=== PATIENT | female | born 1935 | race Two or more races ===

== ENCOUNTER 2016-08-14 16:11 | Inpatient (IN) | payer MEDICARE, MEDICAID ==
[~2016-08-14] VITALS: Ht 154.9 cm; Wt 56.7 kg
--- NOTE | 2016-08-14 16:20 | NUR ---
PT EN[facility]UEL FROM [facility], CURRENTLY RESIDES AT [facility] FOR LEFT SIDED CHEST PAIN 1 HR IN TO DIALYSIS. PT AAOX3. VSS. WITH FC. SEEN BY MD FOR EVAL. SAFETY AND COMFORT MEASURES PROVIDED. WILL MONITOR.
[2016-08-14] MEDS ORDERED: ASPIRIN 325 MG TABLET ONE (16:26)
[2016-08-14] MEDS ORDERED: HYDROMORPHONE 1 MG/1 ML DISP.SYRIN ONE (16:27)
[2016-08-14] MEDS ORDERED: ONDANSETRON HCL/PF 4 MG/2 ML VIAL ONE (16:27)
--- NOTE | 2016-08-14 16:27 | NUR ---
STARTED IVHL L HAND 18G
--- NOTE | 2016-08-14 16:27 | NUR ---
Hakeem zambrano in [facility] - 08/14/16 at 1627 by JADON JOSE RAFAEL SANTORO 18G
[2016-08-14] MEDS ORDERED: HYDROMORPHONE INJ 2 MG/ML DISP.SYRIN IV ONE (16:30)
[2016-08-14] MEDS ORDERED: ASPIRIN 325 MG TABLET PO ONE (16:30)
[2016-08-14] MEDS ORDERED: ONDANSETRON HCL/PF 4 MG/2 ML VIAL IVP ONE (16:30)
--- NOTE | 2016-08-14 16:39 | NUR ---
PATIENT STATES THAT SHE IS ALSO ALLERGIC TO ASPIRIN, DR HOUSER MADE AWARE.
[2016-08-14 16:52] LABS: BASOPHILS % (AUTO) 0.4 % (0.0-2.0); EOSINOPHILS # (AUTO) 0.4 /CMM (0.0-0.7); EOSINOPHILS % (AUTO) 3.2 % (0.0-6.0); HEMATOCRIT 34 % (33-45); HEMOGLOBIN 11.3 g/dL (11.5-14.8); LYMPHOCYTES # (AUTO) 2.6 /CMM (0.8-4.8); LYMPHOCYTES % (AUTO) 20.8 % (20.0-44.0); MEAN CORPUSCULAR HEMOGLOBIN 32 PG (26.0-33.0); MEAN CORPUSCULAR HGB CONC 33 g/dl (31.0-36.0); MEAN CORPUSCULAR VOLUME 96 fL (82-100); MONOCYTES # (AUTO) 0.6 /CMM (0.1-1.30); MONOCYTES % (AUTO) 4.6 % (2.0-12.0); NEUTROPHILS # (AUTO) 8.8 /CMM (1.8-8.9); PLATELET COUNT (AUTO) 269 /CMM (150-450); RDW COEFFICIENT OF VARIATION 14.7 (11.5-15.0); RED BLOOD CELL COUNT(AUTO) 3.55 MIL/uL (4.0-5.2); WHITE BLOOD COUNT (AUTO) 12.5 K/uL (4.3-11.0)
[2016-08-14 17:02] LABS: CALCIUM, SERUM 9.1 mg/dL (8.5-10.1); CARBON DIOXIDE 24 mmol/L (21-32); CHLORIDE 104 mmol/L (98-107); CREATININE 2.1 mg/dL (0.6-1.3); GLUCOSE 160 mg/dL (74-106); POTASSIUM 4.4 mmol/L (3.5-5.1); SODIUM SERUM 137 mmol/L (136-145); UREA NITROGEN, BLOOD 25 mg/dL (7-18)
[2016-08-14 17:08] LABS: ALANINE AMINOTRANSFERASE 35 U/L (12-78); ALBUMIN 2.9 g/dL (3.4-5.0); ALKALINE PHOSPHATASE 140 U/L (46-116); ASPARTATE AMINOTRANSFERASE 32 U/L (15-37); BILIRUBIN,DIRECT 0.1 mg/dL (0.0-0.2); BILIRUBIN,TOTAL 0.3 mg/dL (0.2-1.0); TOTAL PROTEIN, SERUM 7.2 g/dL (6.4-8.2)
[2016-08-14 17:10] LABS: TROPONIN I < 0.017 ng/mL (0.00-0.056)
[2016-08-14 17:39] LABS: INR 0.96 (0.87-1.13); PROTHROMBIN TIME 10.3 SECS (9.5-12.7)
--- NOTE | 2016-08-14 17:42 | NUR ---
CALLED [facility]S GROUP, END FINDER FORMING DEPARTMENT, PAGED TO CALL BACK
[2016-08-14] MEDS ORDERED: METO50TA3 PO (18:02)
[2016-08-14] MEDS ORDERED: FOLI0.8T2 PO (18:02)
[2016-08-14] MEDS ORDERED: CLON0.1T PO (18:02)
[2016-08-14] MEDS ORDERED: GABA-532 PO (18:02)
[2016-08-14] MEDS ORDERED: AMLO5TAB2 PO (18:02)
[2016-08-14] MEDS ORDERED: MEGE400O PO (18:02)
[2016-08-14] MEDS ORDERED: ZOLP10TA2 PO (18:02)
[2016-08-14] MEDS ORDERED: ACET-868 PO (18:02)
[2016-08-14] MEDS ORDERED: FURO-144 PO (18:02)
[2016-08-14] MEDS ORDERED: NA P133E RC (18:02)
[2016-08-14] MEDS ORDERED: PANT40TA2 PO (18:02)
[2016-08-14] MEDS ORDERED: ZINC220T PO (18:02)
[2016-08-14] MEDS ORDERED: ONDA4TAB5 PO (18:02)
[2016-08-14] MEDS ORDERED: MAGN400O6 PO (18:02)
[2016-08-14] MEDS ORDERED: OXYB5TAB11 PO (18:02)
[2016-08-14] MEDS ORDERED: ASCO-340 PO (18:02)
[2016-08-14] MEDS ORDERED: BISA10SU8 RC (18:02)
--- NOTE | 2016-08-14 18:23 | NUR ---
REPORT GIVEN TO TAMELA MOMIN FOR TELE ROOM 322-1
[2016-08-14] MEDS ORDERED: NITROGLYCERIN 0.4 MG/TAB BOTTLE SL PRN (19:30)
[2016-08-14] MEDS ORDERED: ONDANSETRON HCL/PF 4 MG/2 ML VIAL IVP PRN (19:30)
[2016-08-14] MEDS ORDERED: HYDROMORPHONE 1 MG/1 ML DISP.SYRIN IV PRN (19:30)
[2016-08-14] MEDS ORDERED: HYDROCODONE/APAP 5/325MG 1 EACH TABLET PO PRN (19:30)
--- NOTE | 2016-08-14 19:30 | NUR ---
TILE MASON NOTES RECEIVED PT IN BED, ALERT AND ORIENTED. COSTA RICAN SPEAKING. NEW ADMIT WITH A DX OF CHEST PAIN. PT ON ROOM TOLERATING WELL. DENIES ANY CHEST PAIN OR DISCOMFORT. BODY AND SKIN ASSESSMENT DONE NOTED ON OPEN WOUND ON THE SACRAL.NOTED WITH ESTRADA CATHETER, DWELLING WELL. NURSING CARE RENDERED. BELONGINGS CHECKED DONE. ALL NEEDS ATTENDED AND ANTICIPATED. SAFETY MEASURES MAINTAINED. WILL CONT. TO MONITOR.
[2016-08-14 20:00] VITALS: BP 134/71
--- NOTE | 2016-08-14 23:00 | NUR ---
RN NOTES Called DR. Frank regarding and get an order for insulin sliding scale. Dr. Frank gave an order for mild regular insulin sliding scale and change diet to renal diabetic diet. Noted and carried out.
[2016-08-14] MEDS ORDERED: BLOOD SUGAR DIAGNOSTIC 1 EACH STRIP IN SCH (23:30)
[2016-08-14] MEDS ORDERED: DEXTROSE 50%-WATER 50 ML DISP.SYRIN IV PRN (23:30)
[2016-08-14] MEDS: BLOOD SUGAR DIAGNOSTIC 1 EACH STRIP IN SCH (23:34)
[2016-08-15] VITALS: BP_SYST 152; BP_SYST 165; BP_DIAS 73; BP_DIAS 83
[2016-08-15] MEDS ORDERED: INSULIN REGULAR, HUMAN 100 UNIT/ML 10 ML VIAL ONE (00:29)
[2016-08-15] MEDS: INSULIN REGULAR, HUMAN 100 UNIT/ML 3 ML VIAL SQ PRN ×2 (00:43→23:24)
[2016-08-15 04:00] VITALS: BP 165/83
[2016-08-15] MEDS: ACETAMINOPHEN 325 MG TABLET PO PRN (04:51)
[2016-08-15 05:31] LABS: BASOPHILS % (AUTO) 0.2 % (0.0-2.0); EOSINOPHILS # (AUTO) 0.4 /CMM (0.0-0.7); EOSINOPHILS % (AUTO) 3.9 % (0.0-6.0); HEMATOCRIT 34 % (33-45); HEMOGLOBIN 11.7 g/dL (11.5-14.8); LYMPHOCYTES # (AUTO) 2.6 /CMM (0.8-4.8); LYMPHOCYTES % (AUTO) 24.3 % (20.0-44.0); MEAN CORPUSCULAR HEMOGLOBIN 32 PG (26.0-33.0); MEAN CORPUSCULAR HGB CONC 34 g/dl (31.0-36.0); MEAN CORPUSCULAR VOLUME 94 fL (82-100); MONOCYTES # (AUTO) 0.8 /CMM (0.1-1.30); MONOCYTES % (AUTO) 7.2 % (2.0-12.0); NEUTROPHILS # (AUTO) 6.9 /CMM (1.8-8.9); NEUTROPHILS % (AUTO) 64.4 % (43.0-81.0); PLATELET COUNT (AUTO) 270 /CMM (150-450); RDW COEFFICIENT OF VARIATION 14.7 (11.5-15.0); RED BLOOD CELL COUNT(AUTO) 3.64 MIL/uL (4.0-5.2); WHITE BLOOD COUNT (AUTO) 10.7 K/uL (4.3-11.0)
[2016-08-15 05:49] LABS: CALCIUM, SERUM 8.9 mg/dL (8.5-10.1); CARBON DIOXIDE 23 mmol/L (21-32); CHLORIDE 104 mmol/L (98-107); CREATININE 2.8 mg/dL (0.6-1.3); GLUCOSE 159 mg/dL (74-106); MAGNESIUM 2.8 mg/dL (1.8-2.4); PHOSPHORUS 3.2 mg/dL (2.5-4.9); POTASSIUM 5.9 mmol/L (3.5-5.1); SODIUM SERUM 138 mmol/L (136-145); UREA NITROGEN, BLOOD 38 mg/dL (7-18)
[2016-08-15] MEDS: BLOOD SUGAR DIAGNOSTIC 1 EACH STRIP IN SCH ×4 (06:40→23:21)
[2016-08-15 06:51] VITALS: BP 138/68
--- NOTE | 2016-08-15 07:43 | NUR ---
COMMUNICATIONS DIRECTOR NOTES ENDORSED PT TO THE NEXT SHIFT WITH NO EPISODE OF CHEST PAIN.
--- NOTE | 2016-08-15 07:55 | NUR ---
MS RN RECEIVED ON BED, AWAKE, ALERT,ORIENTED X1-2,NOT IN ANY FORM OF DISTRESS, RESPIRATIONS EVEN AND UNLABORED,NO SOB NOTED. WILL MONITOR PATIENT.
--- NOTE | 2016-08-15 08:00 | NUR ---
MS MERRILL BREAKFAST SERVED,DUE MEDS HELD AT THIS TIME, PATIENT WILL HAVE DIALYSIS TODAY.
--- NOTE | 2016-08-15 09:10 | NUR ---
MS RN WAS SEEN BY DR. CLAIRE Marie/ ORDERS MADE AND CARRIED OUT.
[2016-08-15] MEDS: CARVEDILOL 6.25 MG TABLET PO SCH ×2 (09:30→18:12)
[2016-08-15] MEDS ORDERED: ASPIRIN 81 MG TAB.CHEW PO SCH (09:30)
[2016-08-15 10:07] LABS: THYROID STIMULATING HORMONE 2.759 uIU/mL (0.358-3.74)
[2016-08-15] MEDS ORDERED: ACETAMINOPHEN 325 MG TABLET PO PRN (11:30)
[2016-08-15] MEDS ORDERED: NA PHOS,M-B/NA PHOS,DI-BA 1 EA ENEMA RC PRN (11:30)
[2016-08-15] MEDS ORDERED: MAGNESIUM HYDROXIDE 30 ML UDC PO PRN (11:30)
[2016-08-15] MEDS ORDERED: BISACODYL SUPP (10 MG) 10 MG/SUPP.RECT SUPP.RECT RC PRN (11:30)
[2016-08-15] MEDS ORDERED: Medication Not On Formulary EA (Ondansetron Hcl (Zofran) 4 MG) PO PRN (11:30)
--- NOTE | 2016-08-15 12:00 | NUR ---
ms rn patient refused coverage for bs.
[2016-08-15] MEDS: GABAPENTIN 100 MG CAPSULE PO SCH ×2 (13:00→18:12)
[2016-08-15] MEDS: CLONIDINE HCL 0.1 MG TABLET PO SCH ×2 (13:00→17:00)
--- NOTE | 2016-08-15 15:00 | NUR ---
MS CEMENT AND CONCRETE PLANT WORKER DONE W/ 1500 OUTPUT,ALL NEEDS ATTENDED.
[2016-08-15 16:00] VITALS: BP 142/76
--- NOTE | 2016-08-15 18:00 | NUR ---
ms rn patient refused blood sugar check at this time, claiming that chasidy only check it twice.
[2016-08-15] MEDS: MEGESTROL ACETATE SUSP 400 MG/10 ML UDC PO SCH (18:11)
[2016-08-15] MEDS: PANTOPRAZOLE 40 MG TABLET.DR PO SCH (18:12)
[2016-08-15] MEDS: AMLODIPINE BESYLATE 5 MG TABLET PO SCH (18:12)
[2016-08-15] MEDS: ZINC SULFATE 220 MG CAPSULE PO SCH (18:12)
[2016-08-15] MEDS: FUROSEMIDE 40 MG TABLET PO SCH (18:12)
[2016-08-15] MEDS: HYDROGEL DRESSING 90 GM TUBE TP SCH (18:14)
--- NOTE | 2016-08-15 19:30 | NUR ---
MS RN NOTES RECEIVED PT IN BED, AWAKE. A/O X 3. EMIRATI SPEAKING. NO DISTRESS, NO SOB AT THIS TIME. RESPIRATION IS EVEN AND UNLABORED./ IV SITE ONLEFT HAND INTACT AND PATENT, WITH NO S.S OF INFILTRATION NOTED. RCW PERMACATH INTACT WITH CLEAN AND DRY DRESSING. DENIES ANY PAIN OR DISCOMFORT AT THIS TIME. ALL NEEDS ATTENDED. KEPT COMFORTABLE. NO S/S OF HYPO/ HYPERGLYCEMIA NOTED. ALL NEEDS ATTENDED. SAFETY PRECAUTIONS OBSERVED. CALL LIGHT WITHIN REACH. WILL CONT TO MONITOR.
[2016-08-15 20:00] VITALS: BP 157/84
--- NOTE | 2016-08-15 21:30 | NUR ---
VERIFIED ARIANNA PT REGARDING HER ALLERGIES TO MORPHINE AND ASA, PER PT SHE IS ALLERGIC TO BOTH MEDICATIONS BUT SHE FORGOT THE REACTION OF IT.
[2016-08-15 22:00] VITALS: BP 131/84
[2016-08-15] MEDS: ZOLPIDEM TARTRATE 10 MG TABLET PO SCH (22:00)
--- NOTE | 2016-08-15 23:18 | NUR ---
PT IS A/O X 3. VERBALLY RESPONSIVE. PT REFUSED AMBIEN AT THIS TIME,. RISK AND BENEFITS EXXPLAINED, PT STILL REFUSED X 3.
[2016-08-16] MEDS: BLOOD SUGAR DIAGNOSTIC 1 EACH STRIP IN SCH ×4 (06:12→22:16)
[2016-08-16] MEDS: INSULIN REGULAR, HUMAN 100 UNIT/ML 3 ML VIAL SQ PRN ×4 (06:14→22:22)
--- NOTE | 2016-08-16 07:00 | NUR ---
MS RN NOTES PT IN BED, RESTING COMFORTABLY AT THIS TIME. AROUSES EASILY,. A/O X 3. TURKISH SPEAKING. NO DISTRESS, NO SOB AT THIS TIME. RESPIRATION IS EVEN AND UNLABORED./ IV SITE ON LEFT HAND INTACT AND PATENT, WITH NO S.S OF INFILTRATION NOTED. RCW PERMACATH INTACT WITH CLEAN AND DRY DRESSING. DENIES ANY PAIN OR DISCOMFORT AT THIS TIME. ALL NEEDS ATTENDED. KEPT COMFORTABLE. NO S/S OF HYPO/ HYPERGLYCEMIA NOTED. ALL NEEDS ATTENDED. SAFETY PRECAUTIONS OBSERVED. CALL LIGHT WITHIN REACH. WILL ENDORSE TO NEXT SHIFT FOR PEYTON.
--- NOTE | 2016-08-16 07:45 | NUR ---
MS RN NOTES RECEIVED REPORT WITH PT IN BED. PATIENT IS A/OX3. AUSTRALIAN SPEAKING. FAMILY MEMBER AT BEDSIDE. NO S/S OF DISTRESS NOTED. NO SOB NOTED. IV IS PATENT AND INTACT. CALL LIGHT IS WITHIN REACH. BED IS IN LOWEST, LOCKED POSITION. WILL CONTINUE TO MONITOR THROUGHOUT SHIFT.
[2016-08-16 08:00] VITALS: BP 129/79
[2016-08-16] MEDS ORDERED: REGADENOSON 0.4 MG/5 ML DISP.SYRIN IVP ONE (08:00)
[2016-08-16] MEDS: MEGESTROL ACETATE SUSP 400 MG/10 ML UDC PO SCH ×2 (10:46→17:41)
[2016-08-16] MEDS: PANTOPRAZOLE 40 MG TABLET.DR PO SCH ×2 (10:46→17:41)
[2016-08-16] MEDS: OXYBUTYNIN CHLORIDE 5 MG TABLET PO SCH (10:47)
[2016-08-16] MEDS: FUROSEMIDE 40 MG TABLET PO SCH (10:47)
[2016-08-16] MEDS: ATORVASTATIN 10 MG TABLET PO SCH (10:47)
[2016-08-16] MEDS: GABAPENTIN 100 MG CAPSULE PO SCH ×3 (10:47→17:41)
[2016-08-16] MEDS: ASCORBIC ACID 500 MG TABLET PO SCH (10:47)
[2016-08-16] MEDS: VIT B CMPLX 3/FA/VIT C/BIOTIN 1 TAB TABLET PO SCH (10:48)
[2016-08-16] MEDS: ZINC SULFATE 220 MG CAPSULE PO SCH (10:48)
[2016-08-16] MEDS: CARVEDILOL 6.25 MG TABLET PO SCH ×2 (10:48→22:15)
[2016-08-16] MEDS: CLONIDINE HCL 0.1 MG TABLET PO SCH ×3 (10:49→17:00)
[2016-08-16] MEDS: AMLODIPINE BESYLATE 5 MG TABLET PO SCH (10:49)
[2016-08-16] MEDS: METOPROLOL TARTRATE 50 MG TABLET PO SCH (10:49)
[2016-08-16] MEDS: HYDROGEL DRESSING 90 GM TUBE TP SCH (10:59)
[2016-08-16] MEDS ORDERED: SECONDARY IV SET 1 EA INFUS.SET MC ONE (12:19)
[2016-08-16] MEDS ORDERED: IV SET PRIMARY PUMP SET 1 EA INFUS.SET MC ONE (13:41)
--- NOTE | 2016-08-16 13:50 | NUR ---
MS RN NOTES PATIENT'S BP WAS CHECKED AND WAS AT 78/41. RECHECKED AND IT WAS AT 86/44. MD WAS MADE AWARE. RECEIVED ORDER TO INFUSE BOLUS OF 1L OF NS. WILL CARRY OUT ORDERS. WILL CONTINUE TO MONITOR PATIENT.
[2016-08-16] MEDS ORDERED: IV NS 0.9% 1,000 ML BAG IV ONE (14:00)
--- NOTE | 2016-08-16 14:23 | NUR ---
MS RN NOTES PATIENT TOLERATING 1L BOLUS OF NS WELL. PATIENT'S BP INCREASED TO 93/44. WILL CONTINUE TO MONITOR.
--- NOTE | 2016-08-16 15:00 | NUR ---
MS RN NOTES URINE SAMPLE COLLECTED FOR URINALYSIS. ESTRADA CATHETER DISCONTINUED. WILL CONTINUE TO MONITOR.
--- NOTE | 2016-08-16 15:07 | NUR ---
MS RN NOTES PATIENT'S BP 106/48. NO S/S OF DISTRESS NOTED. PATIENT A/OX4. WILL CONTINUE TO MONITOR.
[2016-08-16 16:00] VITALS: BP 119/59
--- NOTE | 2016-08-16 16:00 | NUR ---
MS RN NOTES RECEIVED ORDERS FROM DR. RODRIGUEZ. SURGERY IS SCHEDULED FOR 08/18/16, NPO AFTER MIDNIGHT EXCEPT MEDS WITH SIPS OF WATER. CONSENT FOR L ARM AV ACCESS AND REPLACEMENT OF PERM CATH BY DR. RODRIGUEZ AND ANESTHESIA. NO IV OR BLOOD DRAWS ON L ARM POST SURGERY, BILATERAL ARM VEIN MAPPING, LABS FOR 08/18/16 IN AM: CBC, BMP, PTT, PT. TYPE AND SCREEN FOR TODAY. ORDERS RECEIVED AND CARRIED OUT.
[2016-08-16 17:48] LABS: APPEARANCE,URINE CLOUDY (CLEAR); BILIRUBIN,URINE NEGATIVE (NEGATIVE); BLOOD, URINE 1+ Ery/uL (NEGATIVE); COLOR,URINE YELLOW (YELLOW); KETONES,URINE NEGATIVE (NEGATIVE); LEUKOCYTE ESTERASE ,URINE 3+ (NEGATIVE); NITRITE, URINE NEGATIVE (NEGATIVE); PROTEIN,URINE 3+ mg/dl (NEGATIVE); UGLUCOSE TRACE mg/dL (NEGATIVE); UROBILINOGEN,URINE 0.2 EU/dL (0.2)
[2016-08-16 18:05] LABS: PH,URINE >8.5 (5.0-8.0)
[2016-08-16 18:08] LABS: BACTERIA,URINE Moderate /HPF (None Seen); SQUAMOUS EPITHELIAL CELL,UR Few /HPF (None Seen); WBC,URINE 21-50 /HPF (0-3)
--- NOTE | 2016-08-16 19:05 | NUR ---
MS RN NOTES PATIENT IS IN STABLE CONDITION. PATIENT IS A/OX4. VITAL SIGNS STABLE. NO S/S OF DISTRESS NOTED. NO SOB NOTED. IV IS PATENT AND INTACT. ALL PATIENT NEEDS HAVE BEEN MET THROUGHOUT THE DAY. CALL LIGHT IS WITHIN REACH. BED IS IN LOWEST, LOCKED POSITION. WILL ENDORSE CARE TO PM SHIFT.
--- NOTE | 2016-08-16 19:30 | NUR ---
MS RN NOTES RECEIVED PT IN BED, RESTING COMFORTABLY AT THIS TIME. AROUSES EASILY, VERBALLY RESPONSIVE. NO DISTRESS, NO SOB AT THIS TIME. IV SITE ON LEFT HAND INTACT AND PATENT. NO S/S OF INFILTRATION NOTED. NO S/S OF HYPO/ HYPERGLYCEMIA NOTED. DENIES ANY PAIN OR DISCOMFORT AT THIS TIME. ALL NEEDS ATTENDED . CALL LIGHT WITHIN REACH. WILL CONTINUE TO MONITOR.
[2016-08-16 20:00] VITALS: BP 129/79
[2016-08-16 22:00] VITALS: BP 129/79
[2016-08-16] MEDS: ZOLPIDEM TARTRATE 10 MG TABLET PO SCH (22:00)
[2016-08-16] MEDS: MUPIROCIN OINT 2% 22 GM TUBE SCH (22:12)
[2016-08-17] MEDS: BLOOD SUGAR DIAGNOSTIC 1 EACH STRIP IN SCH ×4 (05:50→21:00)
[2016-08-17] MEDS: INSULIN REGULAR, HUMAN 100 UNIT/ML 3 ML VIAL SQ PRN ×4 (05:52→21:03)
--- NOTE | 2016-08-17 06:28 | NUR ---
MS RN NOTES PT IN BED, RESTING COMFORTABLY AT THIS TIME. AROUSES EASILY, VERBALLY RESPONSIVE. NO DISTRESS, NO SOB AT THIS TIME. IV SITE ON LEFT HAND INTACT AND PATENT. NO S/S OF INFILTRATION NOTED. NO S/S OF HYPO/ HYPERGLYCEMIA NOTED. DENIES ANY PAIN OR DISCOMFORT AT THIS TIME. PT TURNED AND REPOSITIONED PER HOSPITAL PROTOCOL. GOOD SKIN CARE PROVIDED. ALL NEEDS ATTENDED . CALL LIGHT WITHIN REACH. WILL ENDORSE TO NEXT SHIFT FOR PEYTON
--- NOTE | 2016-08-17 07:30 | NUR ---
MS RN NOTES RECEIVED REPORT WITH PATIENT RESTING IN BED. NO S/S OF DISTRESS NOTED. NO S/S OF SOB NOTED. IV IS PATENT AND INTACT. BED IS IN LOWEST, LOCKED POSITION. CALL LIGHT IS WITHIN REACH. WILL CONTINUE TO MONITOR THROUGHOUT SHIFT.
[2016-08-17 08:00] VITALS: BP 132/58
[2016-08-17 08:35] LABS: CALCIUM, SERUM 8.5 mg/dL (8.5-10.1); CARBON DIOXIDE 28 mmol/L (21-32); CHLORIDE 107 mmol/L (98-107); CREATININE 3.2 mg/dL (0.6-1.3); GLUCOSE 160 mg/dL (74-106); POTASSIUM 4.2 mmol/L (3.5-5.1); SODIUM SERUM 140 mmol/L (136-145); UREA NITROGEN, BLOOD 36 mg/dL (7-18)
[2016-08-17] MEDS: GABAPENTIN 100 MG CAPSULE PO SCH ×3 (10:30→17:45)
[2016-08-17] MEDS: MEGESTROL ACETATE SUSP 400 MG/10 ML UDC PO SCH ×2 (10:30→17:45)
[2016-08-17] MEDS: ATORVASTATIN 10 MG TABLET PO SCH (10:30)
[2016-08-17] MEDS: OXYBUTYNIN CHLORIDE 5 MG TABLET PO SCH (10:31)
[2016-08-17] MEDS: PANTOPRAZOLE 40 MG TABLET.DR PO SCH ×2 (10:31→17:45)
[2016-08-17] MEDS: ZINC SULFATE 220 MG CAPSULE PO SCH (10:31)
[2016-08-17] MEDS: VIT B CMPLX 3/FA/VIT C/BIOTIN 1 TAB TABLET PO SCH (10:31)
[2016-08-17] MEDS: FUROSEMIDE 40 MG TABLET PO SCH (10:32)
[2016-08-17] MEDS: ASCORBIC ACID 500 MG TABLET PO SCH (10:32)
[2016-08-17] MEDS: AMLODIPINE BESYLATE 5 MG TABLET PO SCH (10:33)
[2016-08-17] MEDS: METOPROLOL TARTRATE 50 MG TABLET PO SCH (10:33)
[2016-08-17] MEDS: CLONIDINE HCL 0.1 MG TABLET PO SCH ×3 (10:33→17:00)
[2016-08-17] MEDS: MUPIROCIN OINT 2% 22 GM TUBE SCH ×2 (10:34→20:31)
[2016-08-17] MEDS: CARVEDILOL 6.25 MG TABLET PO SCH ×2 (10:34→20:31)
--- NOTE | 2016-08-17 10:51 | NUR ---
WOUND CARE CONSULT: PT FOLLOWED BY SURGICAL TEAM FOR WOUNDS. DEFER TO SURGICAL TEAM. PT ON REX ISOFLEX LOW AIRLOSS BED. WILL SEE PRN. IN AGREEMENT WITH PLAN OF CARE.
[2016-08-17 16:00] VITALS: BP 108/64
--- NOTE | 2016-08-17 17:05 | NUR ---
MS RN NOTES PATIENT WANTS HER TO SIGN CONSENT FORMS FOR PROCEDURE ON 08/18/16 WILL CONTINUE TO MONITOR.
--- NOTE | 2016-08-17 19:00 | NUR ---
MS RN INITIAL NOTE PT RECEIVED IN BED, NO S/S OF RESPIRATORY DISTRESS OR SOB. IV SITE INTACT WITH NO S/S OF INFILTRATION NOTED. SAFE ENVIRONMENT PROVIDED FREE OF CLUTTERS .BED IN LOCKED, LOW POSITION. CALL LIGHT WITHIN EASY REACH. WILL CONTINUE TO MONITOR.
--- NOTE | 2016-08-17 19:10 | NUR ---
MS RN NOTES PATIENT IN BED RESTING COMFORTABLY. A/OX4. PORTUGUESE SPEAKING. NO DISTRESS NOTED. NO S/S OF SOB NOTED. IV IS PATENT AND INTACT. BED IS IN LOWEST, LOCKED POSITION. ALL PATIENT NEEDS HAVE BEEN MET THROUGHOUT THE DAY. WILL ENDORSE CARE TO PM SHIFT.
[2016-08-17 20:00] VITALS: BP 130/69
[2016-08-17] MEDS: ZOLPIDEM TARTRATE 10 MG TABLET PO SCH (21:01)
--- NOTE | 2016-08-17 21:04 | NUR ---
266 MG/DL 6 UNITS OF INSULIN PER PROTOCOL WAS GIVEN PATIENT EATING SNACK AT THIS TIME AND DRINKING CRANBERRY 5OZ OF JUICE.
--- NOTE | 2016-08-17 22:00 | NUR ---
AMBIEN PO 10 MG PATIENT REFUSED MEDS DESPITE RISKS AND BENEFITS OFFERED 3 TIMES STILL REFUSED M.D MADE AWARE
--- NOTE | 2016-08-18 05:07 | NUR ---
PATIENT FOR PROCEDURE TODAY PATIENTS WANTS TO WAIT FOR THE BEFORE SIGNING THE CONSENTS FOR PROCEDURE
[2016-08-18] MEDS: INSULIN REGULAR, HUMAN 100 UNIT/ML 3 ML VIAL SQ PRN ×4 (05:24→21:11)
[2016-08-18] MEDS: BLOOD SUGAR DIAGNOSTIC 1 EACH STRIP IN SCH ×4 (05:24→21:08)
--- NOTE | 2016-08-18 05:52 | NUR ---
BLOOD SUGAR CHECK 227 MG/DL INSULIN WAS HELD 4 UNITS NPO SURGERY TODAY AT AM
--- NOTE | 2016-08-18 06:32 | NUR ---
MS RN CLOSING NOTES PATIENT COMFORTABLY ASLEEP AND EASILY AWAKEN, HEAD OF BED FOR BETTER LUNG EXPANSION. MAINTAINS IN CONTACT ISOLATION FOR PROCEDURE TODAY. MAINTAINS NPO MIDNIGHT, ALERT AND VERBALLY RESPONSIVE X 3, NORTHER[place] IRISH SPEAKING. IV SITE NO S/S OF INFILTRATED, PATIENT DENIES PAIN AT THIS TIME. RESPIRATIONS EVEN AND UNLABORED. NO S/S OF ACUTE DISTRESS, NO SOB, NO COUGH, NO CONGESTION, SKIN WARM AND DRY TO TOUCH, AFEBRILE, ALL NURSING CARE NEEDS PROVIDED AND RENDERED, KEPT CLEAN AND DRY AND COMFORTABLE, GOOD SKIN CARE PROVIDED. FREQUENT VISUAL CHECK DONE FOR SAFETY EVERY 2 HOURS. SAFE HAZARD FREE ENVIRONMENT PROVIDED. CALL LIGHT WITHIN EASY TO REACH, ON LOW BED AT ALL TIMES TO ENSURE SAFETY, WILL ENDORSE TO THE NEXT SHIFT CONTINUE PLAN OF CARE. TOLERATING ROOM AIR 96% R.A, ASSISTED REPOSITION EVERY 2 HOURS FOR COMFORT AND MANAGEMENT. NO S/S OF HYPO/HYPERGLYCEMIA.LEFT A MESSAGE TO SPOUSE JAILYN LEWIS [phone] PATIENT IS WAITING FOR THE SO SHE CAN SIGN THE CONSENTS FOR PROCEDURE
[2016-08-18 08:00] VITALS: BP 144/77
--- NOTE | 2016-08-18 08:00 | NUR ---
MS RN NOTES PATIENT IN BED RESTING NO SOB OR ACUTE DISTRESS NOTED. BED IN LOW LOCKED POSITION, CALL LIGHT WITHIN REACH. WILL CONTINUE TO MONITOR.
[2016-08-18 08:12] LABS: BASOPHILS % (AUTO) 0.3 % (0.0-2.0); EOSINOPHILS # (AUTO) 0.1 /CMM (0.0-0.7); HEMATOCRIT 33 % (33-45); HEMOGLOBIN 11.3 g/dL (11.5-14.8); LYMPHOCYTES # (AUTO) 2.9 /CMM (0.8-4.8); LYMPHOCYTES % (AUTO) 29.6 % (20.0-44.0); MEAN CORPUSCULAR HEMOGLOBIN 32 PG (26.0-33.0); MEAN CORPUSCULAR HGB CONC 34 g/dl (31.0-36.0); MEAN CORPUSCULAR VOLUME 94 fL (82-100); MONOCYTES # (AUTO) 0.7 /CMM (0.1-1.30); MONOCYTES % (AUTO) 7.4 % (2.0-12.0); NEUTROPHILS # (AUTO) 6.1 /CMM (1.8-8.9); NEUTROPHILS % (AUTO) 61.7 % (43.0-81.0); PLATELET COUNT (AUTO) 257 /CMM (150-450); RDW COEFFICIENT OF VARIATION 14.4 (11.5-15.0); RED BLOOD CELL COUNT(AUTO) 3.53 MIL/uL (4.0-5.2); WHITE BLOOD COUNT (AUTO) 9.8 K/uL (4.3-11.0)
[2016-08-18 08:28] LABS: INR 0.94 (0.87-1.13)
[2016-08-18 08:36] LABS: CARBON DIOXIDE 27 mmol/L (21-32); CHLORIDE 98 mmol/L (98-107); CREATININE 3.3 mg/dL (0.6-1.3); GLUCOSE 216 mg/dL (74-106); POTASSIUM 4.1 mmol/L (3.5-5.1); SODIUM SERUM 134 mmol/L (136-145); UREA NITROGEN, BLOOD 31 mg/dL (7-18)
[2016-08-18] MEDS: FUROSEMIDE 40 MG TABLET PO SCH (09:00)
[2016-08-18] MEDS: ASCORBIC ACID 500 MG TABLET PO SCH (09:00)
[2016-08-18] MEDS: CLONIDINE HCL 0.1 MG TABLET PO SCH ×3 (09:00→17:00)
[2016-08-18] MEDS: PANTOPRAZOLE 40 MG TABLET.DR PO SCH ×2 (09:00→17:34)
[2016-08-18] MEDS: ZINC SULFATE 220 MG CAPSULE PO SCH (09:00)
[2016-08-18] MEDS: METOPROLOL TARTRATE 50 MG TABLET PO SCH (09:00)
[2016-08-18] MEDS: MEGESTROL ACETATE SUSP 400 MG/10 ML UDC PO SCH ×2 (09:00→17:34)
[2016-08-18] MEDS: VIT B CMPLX 3/FA/VIT C/BIOTIN 1 TAB TABLET PO SCH (09:00)
[2016-08-18] MEDS: AMLODIPINE BESYLATE 5 MG TABLET PO SCH (09:00)
[2016-08-18] MEDS: GABAPENTIN 100 MG CAPSULE PO SCH ×3 (09:00→17:34)
[2016-08-18] MEDS: ATORVASTATIN 10 MG TABLET PO SCH (09:00)
[2016-08-18] MEDS: CARVEDILOL 6.25 MG TABLET PO SCH ×2 (09:00→21:05)
[2016-08-18] MEDS: OXYBUTYNIN CHLORIDE 5 MG TABLET PO SCH (09:00)
[2016-08-18] MEDS ORDERED: FENTANYL PF 100MCG/2ML AMPUL ONE (09:47)
[2016-08-18] MEDS ORDERED: MIDAZOLAM HCL 2 MG/2ML VIAL ONE (09:47)
[2016-08-18] MEDS: MUPIROCIN OINT 2% 22 GM TUBE SCH ×2 (09:51→21:04)
[2016-08-18] MEDS ORDERED: HEPARIN SODIUM, PORCINE 1,000 UNIT/ML VIAL ONE (10:00)
[2016-08-18] MEDS ORDERED: CELLULOSE,OXIDIZED 1 EA PACK MC ONE (10:00)
[2016-08-18] MEDS ORDERED: LIDOCAINE HCL/PF 1% 30 ML SDV ONE (10:00)
[2016-08-18] MEDS ORDERED: HEPARIN SODIUM, PORCINE 5000 UNITS/1 ML VIAL ONE ×2 (10:51→11:11)
--- NOTE | 2016-08-18 15:00 | NUR ---
MS RN NOTES PATIENT SEEN AND EVALUATED BY DR. REGIS MORA ORDERS NOTED AND KUSHAL OUT.
[2016-08-18 16:00] VITALS: BP 95/55
[2016-08-18] MEDS ORDERED: HYDROCODONE/APAP 5/325MG 1 EACH TABLET PO PRN (16:30)
[2016-08-18] MEDS ORDERED: SECONDARY IV SET 1 EA INFUS.SET MC ONE (17:29)
[2016-08-18] MEDS: ACETAMINOPHEN 325 MG TABLET PO PRN (17:34)
--- NOTE | 2016-08-18 18:00 | NUR ---
MS RN NOTES EDUCATION PROVIDED TO PATIENT REGARDING DISCHARGE INSTRUCTIONS. DISCHARGE PROTOCOL FOLLOWED. PATIENT SIGNED BELONGINGS LIST. ALL BELONGINGS COUNTED FOR. MD AWARE OF ALL ABNORMAL LABS. PRESCRIPTION DONE BY MD ELECTROLOGY. WILL ENDORSE TO PM SHIFT PEYTON. THE CONTINUED FOR DISCHARGE ENDORSED TO PM SHIFT.
[2016-08-18] MEDS: ANCEF 1 GM/50 ML D5W IV SCH ×2 (19:25)
[2016-08-18 20:00] VITALS: BP_SYST 114; BP_DIAS 62; BP_DIAS 67
[2016-08-18] MEDS: ZOLPIDEM TARTRATE 10 MG TABLET PO SCH (21:05)
--- NOTE | 2016-08-18 21:48 | NUR ---
AMBIEN PO 10 MG PATIENT REFUSED MEDS DESPITE RISKS AND BENEFITS OFFERED 3 TIMES STILL REFUSED M.D MADE AWARE
[2016-08-19] MEDS: ANCEF 1 GM/50 ML D5W IV SCH ×2 (02:33)
[2016-08-19] MEDS: BLOOD SUGAR DIAGNOSTIC 1 EACH STRIP IN SCH ×4 (05:29→21:21)
[2016-08-19] MEDS: INSULIN REGULAR, HUMAN 100 UNIT/ML 3 ML VIAL SQ PRN ×4 (05:32→21:25)
--- NOTE | 2016-08-19 06:38 | NUR ---
MS RN CLOSING NOTES PATIENT COMFORTABLY ASLEEP AND EASILY AWAKEN, MORNING CARE DONE, NO S/S OF HYPO/HYPERGLYCEMIA. PATIENT ON ATB WITH NO A/R NOTED. TOLERATING ROOM AIR 02 SAT 98%, MAINTAINS CONTACT ISOLATION. ALERT AND VERBALLY RESPONSIVE X 3, HONDURAN SPEAKING. IV SITE INTACT AT R HAND 20 G, NO S/S OF INFILTRATED, S/P SURGERY OF AV FISTULA AND PERM CATH DRESSING INTACT WITH NO S/S OF BLEEDING NOTED. NO S/S OF ACUTE DISTRESS, NO SOB, NO COUGH, NO CONGESTION, AFEBRILE, ALL NURSING CARE NEEDS PROVIDED AND RENDERED, KEPT CLEAN AND DRY AND COMFORTABLE, GOOD SKIN CARE PROVIDED. FREQUENT VISUAL CHECK DONE FOR SAFETY EVERY 2 HOURS. SAFE HAZARD FREE ENVIRONMENT PROVIDED. CALL LIGHT WITHIN EASY TO REACH, ON LOW BED AT ALL TIMES TO ENSURE SAFETY, WILL ENDORSE TO THE NEXT SHIFT CONTINUE PLAN OF CARE.
[2016-08-19 08:00] VITALS: BP 149/80
--- NOTE | 2016-08-19 08:00 | NUR ---
MS RN NOTES PATIENT IN BED RESTING NO SOB OR ACUTE DISTRESS NOTED. BED IN LOW LOCKED POSITION CALL LIGHT WITHIN REACH. PERIPHERAL IV INTACT PATENT ON RIGHT HAND. WILL CONTINUE TO MONITOR.
[2016-08-19] MEDS: VIT B CMPLX 3/FA/VIT C/BIOTIN 1 TAB TABLET PO SCH (08:48)
[2016-08-19] MEDS: ZINC SULFATE 220 MG CAPSULE PO SCH (08:48)
[2016-08-19] MEDS: CARVEDILOL 6.25 MG TABLET PO SCH ×2 (08:49→21:21)
[2016-08-19] MEDS: FUROSEMIDE 40 MG TABLET PO SCH (08:49)
[2016-08-19] MEDS: AMLODIPINE BESYLATE 5 MG TABLET PO SCH (08:49)
[2016-08-19] MEDS: METOPROLOL TARTRATE 50 MG TABLET PO SCH (08:49)
[2016-08-19] MEDS: CLONIDINE HCL 0.1 MG TABLET PO SCH ×3 (08:49→17:13)
[2016-08-19] MEDS: MEGESTROL ACETATE SUSP 400 MG/10 ML UDC PO SCH ×2 (08:50→17:13)
[2016-08-19] MEDS: ATORVASTATIN 10 MG TABLET PO SCH (08:50)
[2016-08-19] MEDS: OXYBUTYNIN CHLORIDE 5 MG TABLET PO SCH (08:50)
[2016-08-19] MEDS: PANTOPRAZOLE 40 MG TABLET.DR PO SCH ×2 (08:50→17:13)
[2016-08-19] MEDS: GABAPENTIN 100 MG CAPSULE PO SCH ×3 (08:50→17:12)
[2016-08-19] MEDS: ASCORBIC ACID 500 MG TABLET PO SCH (08:50)
[2016-08-19] MEDS: MUPIROCIN OINT 2% 22 GM TUBE SCH ×2 (09:00→21:20)
[2016-08-19] MEDS: ACETAMINOPHEN 325 MG TABLET PO PRN (15:51)
[2016-08-19 16:00] VITALS: BP 119/64
--- NOTE | 2016-08-19 19:04 | NUR ---
MS RN NOTES PATIENT IN BED RESTING NO SOB OR ACUTE DISTRESS NOTED. SURGICAL DRESSINGS INTACT. NO SIGNS OF BLEEDING NOTED. PULSES PRESENT. ALL DUE MEDICATIONS ADMINISTERED, ALL NEEDS MET. WILL ENDORSE CARE TO PM SHIFT.
[2016-08-19 20:19] VITALS: BP 139/69
[2016-08-19] MEDS: ZOLPIDEM TARTRATE 10 MG TABLET PO SCH (21:24)
--- NOTE | 2016-08-19 21:35 | NUR ---
CENTRIFUGAL STATION OPERATOR/NOTES AT THE BEDSIDE AND REFUSED TO GIVE PT AMBIEN BECAUSE HE NOTICED PT SO SLEEPY TILL DAY TIME AND CAN'T EVEN EAT HER BREAKFAST . NO SIGNS OF ANY DISCOMFORT NOTED. BLOOD SUGAR 209, 4 UNITS OF INSULIN GIVEN AND SNACKS ALSO SERVED. NO SIGNS OF HYPER GLYCEMIA NOTED. WILL CONTINUE TO MONITOR.
--- NOTE | 2016-08-20 | NUR ---
MS DONA NOTES PT SLEEPING COMFORTABLY IN BED WITHOUT ANY ACUTE DISTRESS NOTED. KEPT HER WARM AND COMFORTABLE AT ALL TIMES. AT THE BEDSIDE. WILL CONTINUE TO MONITOR. PLACE CALL LIGHT AT REACH.
[2016-08-20] MEDS: INSULIN REGULAR, HUMAN 100 UNIT/ML 3 ML VIAL SQ PRN ×4 (06:09→22:10)
[2016-08-20] MEDS: BLOOD SUGAR DIAGNOSTIC 1 EACH STRIP IN SCH ×4 (06:16→22:08)
--- NOTE | 2016-08-20 07:04 | NUR ---
MS NEUROLOGICAL PHYSIOTHERAPIST CLOSING NOTES PT WOKE UP ,MORNING CARE DONE WELL WOUND CARE TREATMENT DONE, REPOSITION PT FOR COMFORT. STABLE BRAULIO THE NIGHT AND SLEPT WELL. BLOOD SUGAR 314, 8 UNITS OF INSULIN GIVEN , NO SIGNS OF HYPER GLYCEMIA NOTED. KEPT HER WARM AND COMFORTABLE AT ALL TIMES. REMAIN AT THE BEDSIDE . ISOLATION PRECAUTION IMPLEMENTED AND OBSERVED. ENDORSE TO AM NURSE FOR CONTINUITY OF CARE. PLACE CALL LIGHT AT REACH.
[2016-08-20 08:00] VITALS: BP 138/61
[2016-08-20] MEDS: ZINC SULFATE 220 MG CAPSULE PO SCH (08:51)
[2016-08-20] MEDS: MEGESTROL ACETATE SUSP 400 MG/10 ML UDC PO SCH ×2 (08:51→17:00)
[2016-08-20] MEDS: CARVEDILOL 6.25 MG TABLET PO SCH ×2 (08:52→21:56)
[2016-08-20] MEDS: ASCORBIC ACID 500 MG TABLET PO SCH (08:52)
[2016-08-20] MEDS: FUROSEMIDE 40 MG TABLET PO SCH (08:52)
[2016-08-20] MEDS: CLONIDINE HCL 0.1 MG TABLET PO SCH ×3 (08:52→17:00)
[2016-08-20] MEDS: PANTOPRAZOLE 40 MG TABLET.DR PO SCH ×2 (08:53→17:00)
[2016-08-20] MEDS: AMLODIPINE BESYLATE 5 MG TABLET PO SCH (08:53)
[2016-08-20] MEDS: VIT B CMPLX 3/FA/VIT C/BIOTIN 1 TAB TABLET PO SCH (08:54)
[2016-08-20] MEDS: GABAPENTIN 100 MG CAPSULE PO SCH ×3 (08:54→17:00)
[2016-08-20] MEDS: METOPROLOL TARTRATE 50 MG TABLET PO SCH (08:54)
[2016-08-20] MEDS: ATORVASTATIN 10 MG TABLET PO SCH (08:55)
[2016-08-20] MEDS: MUPIROCIN OINT 2% 22 GM TUBE SCH ×2 (09:00→21:59)
[2016-08-20] MEDS: OXYBUTYNIN CHLORIDE 5 MG TABLET PO SCH (10:32)
--- NOTE | 2016-08-20 14:27 | NUR ---
PATIENT DISCHARGED TO DAUGHTER ju;[facility] home via private auto in no acute distress with all belongings and f/u care plan via w/c to lobby with daughter by his side.. PEDRO D/C D WITH PRESSURE DRESSING APPLIED . AND F/U INSTRUCTIONS IN HAND. Addendum: 08/20/16 at 1431 by KOMAL TURNER RN NOTE ON WRONG PATIENT INTENDED FOR ALFONSO CABRERA
[2016-08-20 16:00] VITALS: BP 124/64
--- NOTE | 2016-08-20 17:58 | NUR ---
PATIENT ON HEMODIALYSIS AT 1700 MEDS HELD FOR THAT REASON
--- NOTE | 2016-08-20 18:51 | NUR ---
PT HAD HEMO DIALYSIS FOR 2HRS WITH 3 LITERS OFF B/P 122/54 ATED WELL .
--- NOTE | 2016-08-20 19:30 | NUR ---
MS RN NOTE RECEIVED PATIENT AWAKE IN BED. NO RESPIRATORY DISTRESS OR SOB NOTED. NO S/S OF PAIN OR DISCOMFORT. IV SITE INTACT, WITH NO REDNESS NOTED. THRILL FELT TO LFA. BED LOCKED AND IN LOWEST POSITION. SIDE RAILS UP, CALL LIGHT WITHIN REACH. WILL CONTINUE TO MONITOR.
[2016-08-20 20:00] VITALS: BP 121/64
[2016-08-20] MEDS: ZOLPIDEM TARTRATE 10 MG TABLET PO SCH (21:55)
[2016-08-20 22:00] VITALS: BP 121/64
--- NOTE | 2016-08-20 22:00 | NUR ---
MS RN NOTE BLOOD SUGAR 223. 4 UNITS OF INSULIN GIVEN.
[2016-08-21] MEDS: INSULIN REGULAR, HUMAN 100 UNIT/ML 3 ML VIAL SQ PRN ×2 (06:24→12:10)
[2016-08-21] MEDS: BLOOD SUGAR DIAGNOSTIC 1 EACH STRIP IN SCH ×2 (06:25→14:25)
--- NOTE | 2016-08-21 06:48 | NUR ---
MS RN NOTE BLOOD SUGAR 212. 4 UNITS INSULIN GIVEN.
[2016-08-21 07:14] LABS: BASOPHILS % (AUTO) 0.3 % (0.0-2.0); EOSINOPHILS # (AUTO) 0.1 /CMM (0.0-0.7); EOSINOPHILS % (AUTO) 1.3 % (0.0-6.0); HEMATOCRIT 30 % (33-45); HEMOGLOBIN 10.2 g/dL (11.5-14.8); LYMPHOCYTES # (AUTO) 1.8 /CMM (0.8-4.8); LYMPHOCYTES % (AUTO) 20.2 % (20.0-44.0); MEAN CORPUSCULAR HEMOGLOBIN 32 PG (26.0-33.0); MEAN CORPUSCULAR HGB CONC 34 g/dl (31.0-36.0); MEAN CORPUSCULAR VOLUME 95 fL (82-100); MONOCYTES # (AUTO) 0.6 /CMM (0.1-1.30); MONOCYTES % (AUTO) 6.9 % (2.0-12.0); NEUTROPHILS # (AUTO) 6.3 /CMM (1.8-8.9); NEUTROPHILS % (AUTO) 71.3 % (43.0-81.0); PLATELET COUNT (AUTO) 265 /CMM (150-450); RDW COEFFICIENT OF VARIATION 14.2 (11.5-15.0); RED BLOOD CELL COUNT(AUTO) 3.14 MIL/uL (4.0-5.2); WHITE BLOOD COUNT (AUTO) 8.9 K/uL (4.3-11.0)
--- NOTE | 2016-08-21 07:41 | NUR ---
MS RN NOTE RECEIVED PATIENT RESTING IN BED AWAKE AND ORIENTED X3. IN NO APPARENT DISTRESS, NO SOB NOTED ON ROOM AIR. DENIES PAIN OR DISCOMFORT AT THIS TIME IV SITE TO RIGHT HAND INTACT, AV SHUNT/FISTULA TO LEFT FA NEWLY PLACED. SAFETY MEASURES RENDERED, BED LOCKED AND IN LOWEST POSITION. SIDE RAILS UP, CALL LIGHT WITHIN REACH. WILL CONTINUE TO MONITOR.
[2016-08-21 07:42] LABS: CALCIUM, SERUM 8.5 mg/dL (8.5-10.1); CARBON DIOXIDE 29 mmol/L (21-32); CHLORIDE 100 mmol/L (98-107); CREATININE 3.1 mg/dL (0.6-1.3); GLUCOSE 189 mg/dL (74-106); MAGNESIUM 2.1 mg/dL (1.8-2.4); PHOSPHORUS 3.1 mg/dL (2.5-4.9); POTASSIUM 4.8 mmol/L (3.5-5.1); SODIUM SERUM 138 mmol/L (136-145); UREA NITROGEN, BLOOD 30 mg/dL (7-18)
[2016-08-21 08:00] VITALS: BP 129/63
[2016-08-21] MEDS: ZINC SULFATE 220 MG CAPSULE PO SCH (08:50)
[2016-08-21] MEDS: VIT B CMPLX 3/FA/VIT C/BIOTIN 1 TAB TABLET PO SCH (08:50)
[2016-08-21] MEDS: GABAPENTIN 100 MG CAPSULE PO SCH ×2 (08:51→14:28)
[2016-08-21] MEDS: CLONIDINE HCL 0.1 MG TABLET PO SCH ×2 (08:51→13:00)
[2016-08-21] MEDS: MEGESTROL ACETATE SUSP 400 MG/10 ML UDC PO SCH (08:51)
[2016-08-21] MEDS: ATORVASTATIN 10 MG TABLET PO SCH (08:51)
[2016-08-21] MEDS: METOPROLOL TARTRATE 50 MG TABLET PO SCH (08:51)
[2016-08-21] MEDS: OXYBUTYNIN CHLORIDE 5 MG TABLET PO SCH (08:51)
[2016-08-21] MEDS: ASCORBIC ACID 500 MG TABLET PO SCH (08:52)
[2016-08-21] MEDS: AMLODIPINE BESYLATE 5 MG TABLET PO SCH (08:52)
[2016-08-21] MEDS: PANTOPRAZOLE 40 MG TABLET.DR PO SCH (08:52)
[2016-08-21] MEDS: FUROSEMIDE 40 MG TABLET PO SCH (08:52)
[2016-08-21] MEDS: MUPIROCIN OINT 2% 22 GM TUBE SCH (08:53)
[2016-08-21] MEDS: CARVEDILOL 6.25 MG TABLET PO SCH (08:53)
[2016-08-21 09:25] VITALS: BP 129/63
--- NOTE | 2016-08-21 15:10 | NUR ---
MS/RN NOTES PATIENT RESTING IN BED COMFORTABLY, NO SIGNIFICANT CHANGES NOTED. AT BEDSIDE. IMPLEMENTED WOUND CARE DIRECTED, CLEANED AND REPOSITIONED. AWAITING ON DISCHARGE.
[2016-08-21 16:00] VITALS: BP 120/59
--- NOTE | 2016-08-21 16:53 | NUR ---
D/C NOTES PATIENT READY FOR DISCHARGE. DISCHARGE ORDER RECEIVED, ALL FORMS COMPLETED, SIGNED COPIED AND PLACED IN PATIENT CHART AND DISCHARGE FOLDER. AT BEDSIDE, WHERE ALL DISCHARGE INSTRUCTIONS WERE PROVIDED AND AGREED. PATIENT HAS STAGE 3 PRESSURE ULCER, PICTURES TAKEN AND PLACED IN CHART, IV TO RIGHT HAND REMOVED AND COVERED PROPERLY. BELONGINGS RETURNED AND SIGNED BY . CALLED [facility] AND PROVIDED DETAILED REPORT TO EDUARDO TUBER HELPER. PATIENT LEFT VIA [facility] AMBULANCE IN STABLE CONDITION.
--- NOTE | 2016-08-21 17:11 | NUR ---
D/C NOTES PATIENTS NEW AV FISTULA TO LEFT FOREARM COVERED IN DRESSING AND INTACT. DONNELL CATH TO RIGHT UPPER CHEST IN PLACE, TIP COVERED WITH GAUZE FOR INFECTION CONTROL.
== END 2016-08-21 16:55 | DRG 981 ==
LOC: ER 16:13 → TELE 18:30 → MED 08-15 09:06
PROVIDERS: ADMIT Internal Medicine Nephrology; ATTEND Internal Medicine Nephrology
PROC: 5A1D60Z (ICD-10-PCS; 2016-08-15)
PROC: B518YZA Fluoroscopy of Superior Vena Cava using Other Contrast, Guidance (ICD-10-PCS; 2016-08-18)
PROC: 031C0ZF Bypass Left Radial Artery to Lower Arm Vein, Open Approach (ICD-10-PCS; 2016-08-18)
PROC: 05PY33Z Removal of Infusion Device from Upper Vein, Percutaneous Approach (ICD-10-PCS; principal; 2016-08-18 09:30)
PROC: 02HV33Z Insertion of Infusion Device into Superior Vena Cava, Percutaneous Approach (ICD-10-PCS; 2016-08-18 09:30)
DX: M94.0 Chondrocostal junction syndrome [Tietze] (principal); N18.6 End stage renal disease; L89.153 Pressure ulcer of sacral region, stage 3; T82.41XA Breakdown (mechanical) of vascular dialysis catheter, initial encounter; I12.0 Hypertensive chronic kidney disease with stage 5 chronic kidney disease or end stage renal disease; Z99.2 Dependence on renal dialysis; K21.9 Gastro-esophageal reflux disease without esophagitis; E87.5 Hyperkalemia; E78.5 Hyperlipidemia, unspecified; E11.42 Type 2 diabetes mellitus with diabetic polyneuropathy; E11.22 Type 2 diabetes mellitus with diabetic chronic kidney disease; D64.9 Anemia, unspecified; Y84.9 Medical procedure, unspecified as the cause of abnormal reaction of the patient, or of later complication, without mention of misadventure at the time of the procedure; Y92.129 Unspecified place in nursing home as the place of occurrence of the external cause
CPT/HCPCS: 36415; 71010-TC; 80048-TC; 80061-TC; 80076-TC; 81000-TC; 82306; 82728-TC; 82962-TC; 83540-TC; 83735-TC; 84100-TC; 84439-TC; 84443-TC; 84484-TC; 85025-TC; 85610-TC; 85730-TC; 86704; 86706; 86709-TC; 86803; 86850-TC; 87040-TC; 87081-TC; 87086-TC; 87186-TC; 87340; 90935-TC; 93307-TC; A4606; A6248; A6402; A9502; C1750; C1769; J0690; J1170; J1644; J1815; J2250; J2405; J2785; J3010; J3490; J7030; J7060; Z7610

== ENCOUNTER 2016-08-28 18:09 | Inpatient (IN) | payer MEDICARE, MEDICAID ==
[~2016-08-28] VITALS: Ht 160 cm; Wt 57.6 kg
[~2016-08-28 18:09] MED LIST: ACET-868 PO; AMLO5TAB2 PO; ASCO-340 PO; BISA10SU8 RC; CLON0.1T PO; FOLI0.8T2 PO; FURO-144 PO; GABA-532 PO; MAGN400O6 PO; MEGE400O PO; METO50TA3 PO; NA P133E RC; ONDA4TAB5 PO; OXYB5TAB11 PO; PANT40TA2 PO; ZINC220T PO; ZOLP10TA2 PO
--- NOTE | 2016-08-28 18:11 | NUR ---
PT DRE FROM DIALYSIS CENTER. PER REPORT MALFUNCTION AFTER 2 HOURS OF DIALYSIS. PT GOWNED AND PLACED ON MONITOR. STABLE VITALS. AWAITING MD DUTTA.
--- NOTE | 2016-08-28 18:27 | NUR ---
DR CLEMENT AT BEDSIDE FOR EVAL.
--- NOTE | 2016-08-28 18:38 | NUR ---
IV LINE STARTED. BLOOD DRAWN AND SENT TO LAB.
--- NOTE | 2016-08-28 18:41 | NUR ---
CALLED NURSING SUP. FOR MS BED
[2016-08-28 18:43] LABS: BASOPHILS # (AUTO) 0.1 /CMM (0.0-0.2); BASOPHILS % (AUTO) 0.7 % (0.0-2.0); EOSINOPHILS # (AUTO) 0.2 /CMM (0.0-0.7); EOSINOPHILS % (AUTO) 1.8 % (0.0-6.0); HEMATOCRIT 31 % (33-45); HEMOGLOBIN 10.8 g/dL (11.5-14.8); LYMPHOCYTES # (AUTO) 2.7 /CMM (0.8-4.8); LYMPHOCYTES % (AUTO) 22.2 % (20.0-44.0); MEAN CORPUSCULAR HEMOGLOBIN 33 PG (26.0-33.0); MEAN CORPUSCULAR HGB CONC 35 g/dl (31.0-36.0); MEAN CORPUSCULAR VOLUME 96 fL (82-100); MONOCYTES # (AUTO) 0.9 /CMM (0.1-1.30); MONOCYTES % (AUTO) 7.3 % (2.0-12.0); NEUTROPHILS # (AUTO) 8.1 /CMM (1.8-8.9); PLATELET COUNT (AUTO) 291 /CMM (150-450); RDW COEFFICIENT OF VARIATION 15.3 (11.5-15.0); RED BLOOD CELL COUNT(AUTO) 3.25 MIL/uL (4.0-5.2)
[2016-08-28 19:07] LABS: INR 1.06 (0.87-1.13)
[2016-08-28 19:14] LABS: CALCIUM, SERUM 9.3 mg/dL (8.5-10.1); CARBON DIOXIDE 20 mmol/L (21-32); CHLORIDE 102 mmol/L (98-107); CREATININE 3.4 mg/dL (0.6-1.3); GLUCOSE 219 mg/dL (74-106); POTASSIUM 5.6 mmol/L (3.5-5.1); SODIUM SERUM 137 mmol/L (136-145); UREA NITROGEN, BLOOD 42 mg/dL (7-18)
[2016-08-28] MEDS ORDERED: MULT-213 PO (19:23)
[2016-08-28] MEDS ORDERED: HYDR-552 PO (19:23)
[2016-08-28] MEDS ORDERED: ATOR10TA PO (19:23)
[2016-08-28] MEDS ORDERED: CARV6.25 PO (19:23)
[2016-08-28] MEDS ORDERED: DEXTROSE 50%-WATER 50 ML DISP.SYRIN ONE (19:24)
[2016-08-28] MEDS ORDERED: SODIUM POLYSTYRENE SULFONATE 15 G/60 ML BOTTLE ONE (19:24)
[2016-08-28] MEDS ORDERED: INSULIN REGULAR, HUMAN 100 UNIT/ML 10 ML VIAL ONE (19:25)
[2016-08-28] MEDS ORDERED: INSU100V3 SQ (19:25)
--- NOTE | 2016-08-28 19:25 | NUR ---
GROUP CALLED, AMBULANCE DRIVER, PAGED TO CALL BACK
[2016-08-28] MEDS ORDERED: ALBUTEROL FS 2.5 MG/3 ML VIAL.NEB ONE (19:27)
[2016-08-28] MEDS ORDERED: INSULIN REGULAR, HUMAN 100 UNIT/ML 10 ML VIAL IV ONE (19:30)
[2016-08-28] MEDS ORDERED: SODIUM POLYSTYRENE SULFONATE 15 G/60 ML BOTTLE PO ONE (19:30)
[2016-08-28] MEDS ORDERED: DEXTROSE 50%-WATER 50 ML DISP.SYRIN IV ONE (19:30)
[2016-08-28] MEDS ORDERED: ALBUTEROL FS 2.5 MG/3 ML VIAL.NEB NEB ONE (19:30)
--- NOTE | 2016-08-28 20:23 | NUR ---
REPORT GIVEN TO MARIANN.PT AWAITING TRANSFER TO FLOOR.
[2016-08-28 20:37] VITALS: BP 120/49
--- NOTE | 2016-08-28 20:37 | NUR ---
RN NOTES ADMITTED A 80 YEARS OLD, FEMALE MONEGASQUE PT FROM ER WITH PRIMARY DIAGNOSIS OF HD CATH DYSFUNCTION UNDER DR BRUMFIELD. PT CAME VIA GURNEY ACCOMPANIED BY ER NURSE AND HER . PT ALERT AND ORIENTED X3, DENIES ANY PAIN AND DISCOMFORT AT THIS TIME. VITAL SIGNS STABLE, AFEBRILE. ATTACHED TO TELE MONITOR WHICH READS SINUS RHYTHM WITH HEART RATE AT 74. ON ROOM AIR WITH GOOD SATURATION. DENIES NAUSEA, VOMITING AND CHEST PAIN. SKIN AND BODY ASSESSMENT DONE WITH PICTURES TAKEN AND FILED IN THE CHART. HD CATH ON RIGHT UPPER CHEST INTACT WITH DRESSING INTACT DRY AND CLEAN. RIGHT WRIST WITH GAUGE 20 PATENT AND INTACT. ESTRADA CATH INTACT WITH CLEAR URINE OUTPUT NOTED. KEPT BED IN THE LOWEST POSITION, LOCKED, SIDE RAILS X3 UP WITH CALL LIGHT WITHIN REACH. KEPT COMFORTABLE AND ATTENDED. WILL PAGED DR BRUMFIELD FOR ADMITTING ORDERS.
[2016-08-28 21:00] VITALS: BP 120/49
[2016-08-28 21:02] LABS: PARTIAL THROMBOPLASTIN TIME < 170 SEC (23-34)
[2016-08-28] MEDS ORDERED: DEXTROSE 50%-WATER 50 ML DISP.SYRIN IV PRN (22:30)
[2016-08-28] MEDS ORDERED: NA PHOS,M-B/NA PHOS,DI-BA 1 EA ENEMA RC PRN (22:30)
[2016-08-28] MEDS ORDERED: ACETAMINOPHEN 325 MG TABLET PO PRN (22:30)
[2016-08-28] MEDS ORDERED: CLONIDINE HCL 0.1 MG TABLET PO PRN (22:30)
--- NOTE | 2016-08-28 22:40 | NUR ---
RN NOTES SPOKE TO DR BRUMFIELD, ADMITTING ORDERS GIVEN. PT MADE AWARE, NOTED AND CARRIED OUT.WILL CONTINUE TO MONITOR PT.
[2016-08-28] MEDS ORDERED: ATORVASTATIN 10 MG TABLET ONE (23:26)
[2016-08-28] MEDS: ATORVASTATIN 10 MG TABLET PO SCH (23:35)
[2016-08-29] VITALS: BP 128/65
[2016-08-29] MEDS: BLOOD SUGAR DIAGNOSTIC 1 EACH STRIP IN SCH ×4 (06:39→21:44)
[2016-08-29] MEDS: INSULIN REGULAR, HUMAN 100 UNIT/ML 3 ML VIAL SQ PRN ×3 (06:42→18:03)
--- NOTE | 2016-08-29 07:16 | NUR ---
RN NOTES PT ASLEEP, BREATHING REGULAR AND UNLABORED, NO SOB, NOT IN DISTRESS, ON ROOM AIR AND TOLERATED WELL. VITAL SIGNS STABLE, AFEBRILE. TELEMONITOR READS SINUS RHYTHM AT 78. NO COMPLAIN OF PAIN, NO EPISODE OF NAUSEA AND VOMITING NOTED. NO SIGNS OF HYPOGLYCEMIA NOTED. SKIN CARE AND WOUND CARE DONE. TURNED AND REPOSITION SCHEDULED. FALL PRECAUTION OBSERVED. WILL ENDORSE TO MORNING RN FOR CONTINUITY OF CARE.
--- NOTE | 2016-08-29 07:55 | NUR ---
RN OPENING NOTES RECEIVED PATIENT IN BED, ASLEEP, HOB ELEVATED, NO SOB OR DISTRESS NOTED. A/O X 4, VERBALLY RESPONSIVE AND ABLE TO MAKE NEEDS KNOWN. PATIENT ON TELE MONITOR, SR HEART RATE OF 73. IV INTACT AND PATENT. KEPT PATIENT CLEAN AND COMFORTABLE IN BED, CALL LIGHT WITHIN PATIENT REACH. WILL CONTINUE TO MONITOR ACCORDINGLY.
[2016-08-29 08:00] VITALS: BP 127/62
[2016-08-29 08:03] LABS: BASOPHILS % (AUTO) 0.5 % (0.0-2.0); EOSINOPHILS % (AUTO) 0.5 % (0.0-6.0); HEMATOCRIT 27 % (33-45); LYMPHOCYTES # (AUTO) 2.3 /CMM (0.8-4.8); LYMPHOCYTES % (AUTO) 31.9 % (20.0-44.0); MEAN CORPUSCULAR HEMOGLOBIN 32 PG (26.0-33.0); MEAN CORPUSCULAR HGB CONC 33 g/dl (31.0-36.0); MEAN CORPUSCULAR VOLUME 96 fL (82-100); MONOCYTES # (AUTO) 0.8 /CMM (0.1-1.30); MONOCYTES % (AUTO) 11.1 % (2.0-12.0); NEUTROPHILS # (AUTO) 4.1 /CMM (1.8-8.9); PLATELET COUNT (AUTO) 241 /CMM (150-450); RDW COEFFICIENT OF VARIATION 15.5 (11.5-15.0); WHITE BLOOD COUNT (AUTO) 7.4 K/uL (4.3-11.0)
[2016-08-29 08:24] LABS: ALANINE AMINOTRANSFERASE 12 U/L (12-78); ALBUMIN 2.7 g/dL (3.4-5.0); ALKALINE PHOSPHATASE 89 U/L (46-116); ASPARTATE AMINOTRANSFERASE 15 U/L (15-37); BILIRUBIN,TOTAL 0.3 mg/dL (0.2-1.0); CALCIUM, SERUM 8.5 mg/dL (8.5-10.1); CARBON DIOXIDE 22 mmol/L (21-32); CHLORIDE 104 mmol/L (98-107); CREATININE 3.9 mg/dL (0.6-1.3); GLUCOSE 284 mg/dL (74-106); MAGNESIUM 2.5 mg/dL (1.8-2.4); PHOSPHORUS 4.2 mg/dL (2.5-4.9); POTASSIUM 5.1 mmol/L (3.5-5.1); SODIUM SERUM 138 mmol/L (136-145); TOTAL PROTEIN, SERUM 6.3 g/dL (6.4-8.2); UREA NITROGEN, BLOOD 50 mg/dL (7-18)
[2016-08-29] MEDS ORDERED: METOPROLOL TARTRATE 50 MG TABLET PO SCH ×2 (09:00)
[2016-08-29] MEDS: FUROSEMIDE 40 MG TABLET PO SCH (09:00)
[2016-08-29] MEDS: AMLODIPINE BESYLATE 5 MG TABLET PO SCH (09:00)
[2016-08-29] MEDS: CARVEDILOL 6.25 MG TABLET PO SCH ×2 (09:00→21:30)
--- NOTE | 2016-08-29 10:05 | NUR ---
RN NOTES PATIENT RECEIVED DIALYSIS AT BEDSIDE. 1 LITER WAS TAKING OUT.
[2016-08-29] MEDS: MULTIPLE VIT (LYCOPENE/FA/MV,CA,IRON,MIN/LUT)1 TAB PO SCH (10:23)
[2016-08-29] MEDS: MEGESTROL ACETATE SUSP 400 MG/10 ML UDC PO SCH ×2 (10:23→16:30)
[2016-08-29] MEDS: ZINC SULFATE 220 MG CAPSULE PO SCH (10:23)
[2016-08-29] MEDS: PANTOPRAZOLE 40 MG TABLET.DR PO SCH ×2 (10:24→16:30)
[2016-08-29] MEDS: GABAPENTIN 100 MG CAPSULE PO SCH ×3 (10:24→16:30)
[2016-08-29] MEDS: OXYBUTYNIN CHLORIDE 5 MG TABLET PO SCH (10:24)
[2016-08-29] MEDS: ASCORBIC ACID 500 MG TABLET PO SCH (10:25)
--- NOTE | 2016-08-29 11:28 | NUR ---
WOUND CARE CONSULT: PT BEING SEEN BY SURGICAL TEAM. DEFER TO SURGICAL TEAM FOR WOUND TREATMENT PLAN. FIRST STEP MATTRESS ORDERED. ALL SKIN PROTECTION MEASURES IN PLACE AND DISCUSSED WITH NURSING STAFF. WILL SEE PRN. PETE IN AGREEMENT WITH PLAN OF CARE.
[2016-08-29] MEDS ORDERED: Z GUARD REMEDY 2 OZ OINT TP PRN (11:30)
--- NOTE | 2016-08-29 12:20 | NUR ---
RN NOTES PATIENT IS WATCHING TV WITH AT BEDSIDE WITH NO SOB OR DISTRESS NOTED.
[2016-08-29 16:00] VITALS: BP 127/69
[2016-08-29] MEDS: Z GUARD REMEDY 2 OZ OINT TP SCH (16:30)
[2016-08-29] MEDS: NYSTATIN/TRIAMCIN CREAM 15 GM TUBE TP SCH (16:31)
--- NOTE | 2016-08-29 19:20 | NUR ---
RN NOTES RECEIVED PT AWAKE, HOB ELEVATED, NO SOB, NOT IN DISTRESS, ON ROOM AIR AND TOLERATED WELL. PT ALERT AND ORIENTED X3, DENIES ANY PAIN AND DISCOMFORT AT THIS TIME. HD CATH ON RIGHT UPPER CHEST INTACT, DRESSING DRY AND CLEAN. IV ACCESS ON RIGHT WRIST PATENT AND INTACT. BOTH HEELS OFFLOADED. WSAFETY MEASURES IN PLACE. KEPT BED IN THE LOWEST POSITION, LOCKED, SIDE RAILS UP X3, WITH CALL LIGHT WITH IN REACH. WILL CONTINUE TO MONITOR PT.
--- NOTE | 2016-08-29 19:29 | NUR ---
RN NOTES ALL NEEDS PROVIDED, ATTENDED, AND ANTICIPATED. KEPT PATIENT CLEAN AND COMFORTABLE IN BED, CALL LIGHT WITHIN PATIENT REACH, WILL CONTINUE TO MONITOR ACCORDINGLY. ENDORSED TO NEXT SHIFT RN TO CONTINUE CARE.
[2016-08-29 20:51] VITALS: BP 107/53
[2016-08-29] MEDS: ATORVASTATIN 10 MG TABLET PO SCH (21:30)
[2016-08-29] MEDS: *INSULIN REGULAR(HUMULIN R)HUM 100 UNIT/ML VIAL SQ PRN (21:46)
--- NOTE | 2016-08-29 21:46 | NUR ---
RN NOTES BLOOD SUGAR CHECKED 276 MG/DL. 6 UNITS REGULAR INSULIN GIVEN SUBCU. WILL CONTINUE TO MONITOR PT.
[2016-08-29 22:00] VITALS: BP 133/66
[2016-08-30] MEDS: BLOOD SUGAR DIAGNOSTIC 1 EACH STRIP IN SCH ×4 (06:26→21:46)
[2016-08-30] MEDS: INSULIN REGULAR, HUMAN 100 UNIT/ML 3 ML VIAL SQ PRN ×3 (06:31→17:53)
--- NOTE | 2016-08-30 06:31 | NUR ---
RN NOTES BLOOD SUGAR CHECKED 260 MG/DL, 12 UNITS REGULAR INSULIN GIVEN SUBCU. WILL CONTINUE TO MONITOR PT.
--- NOTE | 2016-08-30 06:59 | NUR ---
RN NOTES PT ASLEEP, BREATHING REGULAR AND UNLABORED, NO SOB, NOT IN DISTRESS, ON ROOM AIR AND TOLERATED WELL. VITAL SIGNS STABLE, AFEBRILE. NO COMPLAIN OF PAIN, NO EPISODE OF NAUSEA AND VOMITING NOTED. NO SIGNS OF HYPOGLYCEMIA NOTED. SKIN CARE AND WOUND CARE DONE. TURNED AND REPOSITION SCHEDULED. FALL PRECAUTION OBSERVED. WILL ENDORSE TO MORNING RN FOR CONTINUITY OF CARE.
--- NOTE | 2016-08-30 07:46 | NUR ---
RN NOTES RECEIVED PT RESTING IN BED ASLEEP, AROUSES TO VERBAL STIMULI, RESPIRATIONS EVEN AND UNLABORED, NO SOB NOTED, NOT IN ANY DISTRESS. NO S/S OF PAIN OR DISCOMFORT NOTED. ON ROOM AIR. RIGHT UPPER CHEST DONNELL CATH NOTED, AV FISTULA TO LEFT UPPER EXT, IV TO RIGHT WRIST H/L. ESTRADA CATH IN PLACE DRAINING YELLOW URINE WITH 300CC IN DRAINAGE BAG. SAFETY MEASURES RENDERED, CALL LIGHT PLACED WITHIN REACH. WILL CONTINUE TO MONITOR.
[2016-08-30 08:00] VITALS: BP 153/81
[2016-08-30] MEDS: ASCORBIC ACID 500 MG TABLET PO SCH (08:50)
[2016-08-30] MEDS: GABAPENTIN 100 MG CAPSULE PO SCH ×3 (08:50→16:59)
[2016-08-30] MEDS: MEGESTROL ACETATE SUSP 400 MG/10 ML UDC PO SCH ×2 (08:50→16:13)
[2016-08-30] MEDS: OXYBUTYNIN CHLORIDE 5 MG TABLET PO SCH (08:50)
[2016-08-30] MEDS: ZINC SULFATE 220 MG CAPSULE PO SCH (08:50)
[2016-08-30] MEDS: MULTIPLE VIT (LYCOPENE/FA/MV,CA,IRON,MIN/LUT)1 TAB PO SCH (08:50)
[2016-08-30] MEDS: FUROSEMIDE 40 MG TABLET PO SCH (08:50)
[2016-08-30] MEDS: PANTOPRAZOLE 40 MG TABLET.DR PO SCH ×2 (08:50→16:59)
[2016-08-30] MEDS: AMLODIPINE BESYLATE 5 MG TABLET PO SCH (08:51)
[2016-08-30] MEDS: CARVEDILOL 6.25 MG TABLET PO SCH ×2 (08:51→21:43)
[2016-08-30] MEDS: NYSTATIN/TRIAMCIN CREAM 15 GM TUBE TP SCH ×2 (08:51→17:00)
[2016-08-30] MEDS: Z GUARD REMEDY 2 OZ OINT TP SCH (08:52)
--- NOTE | 2016-08-30 11:19 | NUR ---
MS/RN NOTES MORNING MEDS GIVEN, PATIENT CLEANED AND REPOSITIONED. WILL CONTINUE TO MONITOR
--- NOTE | 2016-08-30 12:23 | NUR ---
MS/RN NOTES 1200 BLOOD SUGAR 251MG/DL. 12 UNITS OF REGULAR INSULIN GIVEN ORDERED. MONITOR PATIENT FOR S/S OF HYPO/HYPERGLYCEMIA.
[2016-08-30] MEDS: HYDROCODONE/APAP 5/325MG 1 EACH TABLET PO PRN (14:04)
[2016-08-30 16:00] VITALS: BP 105/49
--- NOTE | 2016-08-30 18:53 | NUR ---
MS/RN NOTES PATIENT RESTING IN BED, AWAKE AND ORIENTED X3, VERBALLY RESPONSIVE. NO SIGNIFICANT CHANGE NOTED, STABLE AT THIS TIME. RESPIRATIONS EVEN AND UNLABORED ON ROOM AIR. ALL DUE MEDS GIVEN, ALL NEEDS MET AND ATTENDED. PATIENT KEPT CLEAN, DRY AND COMFORTABLE. WOUND AND SKIN CARE DONE, REPOSITIONED EVERY 2 HOURS. SAFETY MEASURES RENDERED CALL LIGHT PLACED WITHIN REACH. WILL ENDORSE CARE TO FIRE AND EXPLOSION INVESTIGATOR FOR PEYTON
--- NOTE | 2016-08-30 19:25 | NUR ---
RN NOTES RECEIVED PT AWAKE, HOB ELEVATED, NO SOB, NOT IN DISTRESS, ON ROOM AIR AND TOLERATED WELL. PT ALERT AND ORIENTED X3, DENIES ANY PAIN AND DISCOMFORT AT THIS TIME. HD CATH ON RIGHT UPPER CHEST INTACT, DRESSING DRY AND CLEAN. IV ACCESS ON RIGHT WRIST PATENT AND INTACT. BOTH HEELS OFFLOADED. WILL TURN AND REPOSITION PT. SAFETY MEASURES IN PLACE. KEPT BED IN THE LOWEST POSITION, LOCKED, SIDE RAILS UP X3, WITH CALL LIGHT WITH IN REACH. WILL CONTINUE TO MONITOR PT.
[2016-08-30 20:49] VITALS: BP 119/49
[2016-08-30] MEDS: ATORVASTATIN 10 MG TABLET PO SCH (21:47)
[2016-08-30] MEDS: *INSULIN REGULAR(HUMULIN R)HUM 100 UNIT/ML VIAL SQ PRN (21:50)
--- NOTE | 2016-08-30 21:50 | NUR ---
RN NOTES BLOOD SUGAR CHECKED 187 MG/DL, 3 UNITS REGULAR INSULIN GIVEN SUBCU. WILL CONTINUE TO MONITOR PT.
[2016-08-30 22:00] VITALS: BP 122/61
[2016-08-31] MEDS: BLOOD SUGAR DIAGNOSTIC 1 EACH STRIP IN SCH ×4 (06:31→21:37)
[2016-08-31] MEDS: INSULIN REGULAR, HUMAN 100 UNIT/ML 3 ML VIAL SQ PRN ×3 (06:33→17:21)
[2016-08-31 06:50] LABS: BASOPHILS % (AUTO) 0.3 % (0.0-2.0); EOSINOPHILS # (AUTO) 0.1 /CMM (0.0-0.7); EOSINOPHILS % (AUTO) 0.9 % (0.0-6.0); HEMATOCRIT 26 % (33-45); LYMPHOCYTES # (AUTO) 2.6 /CMM (0.8-4.8); LYMPHOCYTES % (AUTO) 28.5 % (20.0-44.0); MEAN CORPUSCULAR HEMOGLOBIN 33 PG (26.0-33.0); MEAN CORPUSCULAR HGB CONC 34 g/dl (31.0-36.0); MEAN CORPUSCULAR VOLUME 97 fL (82-100); MONOCYTES # (AUTO) 0.7 /CMM (0.1-1.30); MONOCYTES % (AUTO) 7.8 % (2.0-12.0); NEUTROPHILS # (AUTO) 5.7 /CMM (1.8-8.9); NEUTROPHILS % (AUTO) 62.5 % (43.0-81.0); PLATELET COUNT (AUTO) 230 /CMM (150-450); RDW COEFFICIENT OF VARIATION 16.3 (11.5-15.0); RED BLOOD CELL COUNT(AUTO) 2.73 MIL/uL (4.0-5.2); WHITE BLOOD COUNT (AUTO) 9.2 K/uL (4.3-11.0)
[2016-08-31 07:32] LABS: CALCIUM, SERUM 8.5 mg/dL (8.5-10.1); CARBON DIOXIDE 21 mmol/L (21-32); CHLORIDE 98 mmol/L (98-107); CREATININE 4.3 mg/dL (0.6-1.3); GLUCOSE 179 mg/dL (74-106); MAGNESIUM 2.2 mg/dL (1.8-2.4); PHOSPHORUS 5.1 mg/dL (2.5-4.9); POTASSIUM 4.8 mmol/L (3.5-5.1); SODIUM SERUM 129 mmol/L (136-145); UREA NITROGEN, BLOOD 60 mg/dL (7-18)
--- NOTE | 2016-08-31 07:40 | NUR ---
RN NOTES PT ASLEEP, BREATHING REGULAR AND UNLABORED, NO SOB, NOT IN DISTRESS, ON ROOM AIR AND TOLERATED WELL. VITAL SIGNS STABLE, AFEBRILE. NO COMPLAIN OF PAIN, NO EPISODE OF NAUSEA AND VOMITING NOTED. NO SIGNS OF HYPOGLYCEMIA NOTED. SKIN CARE AND WOUND CARE DONE. TURNED AND REPOSITION SCHEDULED. FALL PRECAUTION OBSERVED. PT FOR HEMODIALYSIS THIS AM. WILL ENDORSE TO MORNING RN FOR CONTINUITY OF CARE.
--- NOTE | 2016-08-31 07:59 | NUR ---
PEANUT SEPARATOR NOTES RECEIVED PATIENT IN BED, IN NO APPARENT DISTRESS, DENIES PAIN, NO SOB NOTED. PATIENT SCHEDULED FOR DIALYSIS TODAY. ESTRADA CATH PATENT WITH 500ML OUTPUT, IV LINE ON RIGHT WRIST PATENT. ALL NEEDS MET, KEPT CLEAN AND DRY, CALL LIGHT WITHIN REACH.
[2016-08-31 08:00] VITALS: BP 122/53
[2016-08-31] MEDS: MULTIPLE VIT (LYCOPENE/FA/MV,CA,IRON,MIN/LUT)1 TAB PO SCH (08:50)
[2016-08-31] MEDS: ZINC SULFATE 220 MG CAPSULE PO SCH (08:50)
[2016-08-31] MEDS: GABAPENTIN 100 MG CAPSULE PO SCH ×3 (08:50→16:04)
[2016-08-31] MEDS: MEGESTROL ACETATE SUSP 400 MG/10 ML UDC PO SCH ×2 (08:50→16:04)
[2016-08-31] MEDS: PANTOPRAZOLE 40 MG TABLET.DR PO SCH ×2 (08:50→16:04)
[2016-08-31] MEDS: ASCORBIC ACID 500 MG TABLET PO SCH (08:50)
[2016-08-31] MEDS: OXYBUTYNIN CHLORIDE 5 MG TABLET PO SCH (08:50)
[2016-08-31] MEDS: CARVEDILOL 6.25 MG TABLET PO SCH ×2 (08:52→20:44)
[2016-08-31] MEDS: AMLODIPINE BESYLATE 5 MG TABLET PO SCH (08:53)
[2016-08-31] MEDS: Z GUARD REMEDY 2 OZ OINT TP SCH (08:54)
[2016-08-31] MEDS: NYSTATIN/TRIAMCIN CREAM 15 GM TUBE TP SCH ×2 (08:54→16:05)
[2016-08-31] MEDS: FUROSEMIDE 40 MG TABLET PO SCH (09:00)
--- NOTE | 2016-08-31 11:32 | NUR ---
RN NOTES BP MEDS HELD DUE TO PATIENT BEING SCHEDULED FOR DIALYSIS.
[2016-08-31] MEDS: HYDROCODONE/APAP 5/325MG 1 EACH TABLET PO PRN (15:19)
[2016-08-31 16:00] VITALS: BP 137/60
[2016-08-31] MEDS ORDERED: EPOETIN ALFA (10,000 UNIT) 10,000 UNIT/ML VIAL IV ONE (17:00)
[2016-08-31] MEDS: BISACODYL SUPP (10 MG) 10 MG/SUPP.RECT SUPP.RECT RC PRN (18:19)
--- NOTE | 2016-08-31 19:10 | NUR ---
RN MS NOTES PATIENT IN BED, NO APPARENT DISTRESS NOTED. PATIENT RECEIVED DIALYSIS TOLERATED WELL. ALL DUE MEDS GIVEN, ALL NEED MET, KEPT CLEAN AND DRY. IV LINE ON RIGHT HAND PATENT, DULCOLAX SUPPOSITORY GIVEN. WILL ENDORSE CARE TO PM SHIFT.
--- NOTE | 2016-08-31 19:45 | NUR ---
MS RN INITIAL NOTES RECEIVED PATIENT IN BED, IN NO APPARENT DISTRESS, WITH AT BEDSIDE. DENIES PAIN, NO SOB NOTED. PT IS FEELING CONSTIPATED, A SUPPOSITORY WAS GIVEN DURING DAY SHIFT, PRUNE JUICE WAS ALSO GIVEN. IV LINE ON RIGHT WRIST PATENT. ALL NEEDS MET, KEPT CLEAN AND DRY, CALL LIGHT WITHIN REACH. WILL CONTINUE TO MONITOR PT
[2016-08-31 20:00] VITALS: BP 139/62
[2016-08-31] MEDS: ATORVASTATIN 10 MG TABLET PO SCH (21:37)
[2016-08-31] MEDS: *INSULIN REGULAR(HUMULIN R)HUM 100 UNIT/ML VIAL SQ PRN (21:39)
--- NOTE | 2016-08-31 22:00 | NUR ---
BM PT WAS ABLE TO HAVE A BOWEL MOVEMENT. IT WAS SOFT AND BROWN WILL CONTINUE TO MONITOR
[2016-09-01] MEDS: BLOOD SUGAR DIAGNOSTIC 1 EACH STRIP IN SCH ×4 (06:31→21:01)
[2016-09-01] MEDS: INSULIN REGULAR, HUMAN 100 UNIT/ML 3 ML VIAL SQ PRN ×3 (06:32→17:12)
--- NOTE | 2016-09-01 06:38 | NUR ---
MS RN CLOSING NOTES PT IS IN BED RESTING, NO SIGNS OF DISTRESS OR SOB. ALL NEEDS WERE ANTICIPATED AND MET. ESTRADA OUTPUT WAS 500. IV ACCESS ON RIGHT WRIST IS PATENT AND INTACT. ICE WAS PLACED ON NECK SWELLING NEEDED. BED IS IN LOW AND LOCKED POSITION. CALL LIGHT IS WITHIN REACH. WILL ENDORSE TO DAY SHIFT.
--- NOTE | 2016-09-01 07:25 | NUR ---
MS RN OPENING NOTES RECEIVED PT. FROM NIGHTSHIFT NURSE IN STABLE CONDITION. PT. IS A/O X3. NO SOB OR SIGNS OF DISTRESS NOTED. BREATHING IS EVEN AND UNLABORED. PT. DENIES ANY PAIN AT THIS TIME. ESTRADA CATHETER INTACT AND DRAINING CLEAR YELLOW URINE. IV PRESENT ON RIGHT WRIST 20G PATENT AND INTACT. HD CATHETER PRESENT ON RIGHT CHEST WELL IS CLEAN AND INTACT. MINOR HEMATOMA NOTED ABOVE CATHETER SITE. ICE WILL BE PLACED ON SITE ORDERED BY MD. BED IN LOW LOCKED POSITION, SIDE RAILS UP X3, CALL LIGHT WITHIN REACH. WILL CONTINUE TO MONITOR.
[2016-09-01 08:00] VITALS: BP 113/52
[2016-09-01] MEDS: ASCORBIC ACID 500 MG TABLET PO SCH (08:52)
[2016-09-01] MEDS: CARVEDILOL 6.25 MG TABLET PO SCH ×2 (08:53→21:02)
[2016-09-01] MEDS: MULTIPLE VIT (LYCOPENE/FA/MV,CA,IRON,MIN/LUT)1 TAB PO SCH (08:54)
[2016-09-01] MEDS: PANTOPRAZOLE 40 MG TABLET.DR PO SCH ×2 (08:54→17:10)
[2016-09-01] MEDS: OXYBUTYNIN CHLORIDE 5 MG TABLET PO SCH (08:55)
[2016-09-01] MEDS: ZINC SULFATE 220 MG CAPSULE PO SCH (08:55)
[2016-09-01] MEDS: GABAPENTIN 100 MG CAPSULE PO SCH ×3 (08:55→17:10)
[2016-09-01] MEDS: AMLODIPINE BESYLATE 5 MG TABLET PO SCH (08:56)
[2016-09-01] MEDS: FUROSEMIDE 40 MG TABLET PO SCH (08:56)
[2016-09-01] MEDS: MEGESTROL ACETATE SUSP 400 MG/10 ML UDC PO SCH ×2 (08:57→17:11)
[2016-09-01] MEDS: Z GUARD REMEDY 2 OZ OINT TP SCH (08:58)
[2016-09-01] MEDS: NYSTATIN/TRIAMCIN CREAM 15 GM TUBE TP SCH ×2 (08:58→17:11)
--- NOTE | 2016-09-01 14:22 | NUR ---
MS RN NOTES PT. IS CURRENTLY RECEIVING SCHEDULED HEMODIALYSIS
[2016-09-01 16:00] VITALS: BP 115/60
--- NOTE | 2016-09-01 16:16 | NUR ---
MS RN NOTES 1 LITER WAS REMOVED FROM PT. AFTER DIALYSIS. PT REMAINS IN STABLE CONDITION
--- NOTE | 2016-09-01 18:59 | NUR ---
MS RN CLOSING NOTES PT. REMAINS IN STABLE CONDITION. NO ACUTE CHANGES IN CONDITION OCCURRED DURING SHIFT. ALL NEEDS WERE ANTICIPATED AND MET. ALL SAFETY MEASURES ARE IN PLACE. PT. WAS REPOSITIONED Q 2 HOURS. WOUND CARE WAS PERFORMED. PT. WAS KEPT DRY AND CLEAN ALL THROUGHOUT SHIFT. ESTRADA CATHETER REMAINS IN PLACE AND INTACT. CATHETER CARE WAS PERFORMED. FC OUTPUT WAS 450. WILL ENDORSE TO NIGHTSHIFT NURSE FOR [place]
--- NOTE | 2016-09-01 19:39 | NUR ---
MS RN INITIAL NOTES RECEIVED PATIENT IN BED, IN NO APPARENT DISTRESS,WITH A ICE PACK ON HER RIGHT CHEST WALL. DENIES PAIN, NO SOB NOTED. PRUNE JUICE WAS GIVEN TO PATIENT, WILL CONTINUE TO MONITOR FOR BM. IV LINE ON RIGHT WRIST PATENT. BED IN LOW AND LOCKED POSITION, CALL LIGHT WITHIN REACH. WILL CONTINUE TO MONITOR PT
[2016-09-01 20:00] VITALS: BP 113/49
[2016-09-01] MEDS: ATORVASTATIN 10 MG TABLET PO SCH (21:03)
[2016-09-01] MEDS: *INSULIN REGULAR(HUMULIN R)HUM 100 UNIT/ML VIAL SQ PRN (21:08)
[2016-09-02] MEDS: INSULIN REGULAR, HUMAN 100 UNIT/ML 3 ML VIAL SQ PRN ×2 (06:32→12:13)
--- NOTE | 2016-09-02 06:46 | NUR ---
MS RN CLOSING NOTES PT IS IN BED RESTING, NO SIGNS OF DISTRESS OR SOB. ALL NEEDS WERE ANTICIPATED AND MET. ESTRADA OUTPUT WAS 400. IV ACCESS ON RIGHT WRIST IS PATENT AND INTACT. ICE WAS PLACED ON NECK SWELLING NEEDED. BED IS IN LOW AND LOCKED POSITION. CALL LIGHT IS WITHIN REACH. WILL ENDORSE TO DAY SHIFT.
[2016-09-02 08:00] VITALS: BP 135/59
--- NOTE | 2016-09-02 08:07 | NUR ---
MS RN NOTES RECEIVED REPORT WITH PATIENT A/OX4. NO S/S OF DISTRESS OR SOB NOTED. BREATHING IS EVEN AND UNLABORED. IV IS INTACT AND PATENT. ESTRADA CATHETER IS PATENT AND INTACT, DRAINING CLEAR YELLOW URINE. PATIENT IS RESTING COMFORTABLY IN BED. BED IS IN THE LOWEST, LOCKED POSITION. CALL LIGHT IS WITHIN REACH. WILL CONTINUE TO MONITOR THROUGHOUT SHIFT.
[2016-09-02] MEDS: MULTIPLE VIT (LYCOPENE/FA/MV,CA,IRON,MIN/LUT)1 TAB PO SCH (09:24)
[2016-09-02] MEDS: ZINC SULFATE 220 MG CAPSULE PO SCH (09:24)
[2016-09-02] MEDS: MEGESTROL ACETATE SUSP 400 MG/10 ML UDC PO SCH ×2 (09:24→09:34)
[2016-09-02] MEDS: CARVEDILOL 6.25 MG TABLET PO SCH (09:25)
[2016-09-02] MEDS: BLOOD SUGAR DIAGNOSTIC 1 EACH STRIP IN SCH ×2 (09:26→12:09)
[2016-09-02] MEDS: FUROSEMIDE 40 MG TABLET PO SCH (09:26)
[2016-09-02] MEDS: OXYBUTYNIN CHLORIDE 5 MG TABLET PO SCH (09:26)
[2016-09-02] MEDS: AMLODIPINE BESYLATE 5 MG TABLET PO SCH (09:26)
[2016-09-02] MEDS: PANTOPRAZOLE 40 MG TABLET.DR PO SCH (09:26)
[2016-09-02] MEDS: GABAPENTIN 100 MG CAPSULE PO SCH ×2 (09:26→12:13)
[2016-09-02] MEDS: ASCORBIC ACID 500 MG TABLET PO SCH (09:26)
[2016-09-02] MEDS: Z GUARD REMEDY 2 OZ OINT TP SCH (09:28)
[2016-09-02] MEDS: NYSTATIN/TRIAMCIN CREAM 15 GM TUBE TP SCH (09:28)
[2016-09-02] MEDS: BISACODYL SUPP (10 MG) 10 MG/SUPP.RECT SUPP.RECT RC PRN (09:40)
[2016-09-02 16:00] VITALS: BP 125/64
--- NOTE | 2016-09-02 17:15 | NUR ---
MS RN NOTES PATIENT HAS BEEN DISCHARGED TO [facility] IN STABLE CONDITION. ESCORTED BY EMT AND . CALLED FACILITY AND REPORT WAS GIVEN TO MERRILL CLARK. PATIENT ID BAND REMOVED. IV REMOVED. DISCHARGE INSTRUCTIONS WERE PROVIDED TO THE PATIENT AND TO THE PATIENT'S . NO S/S OF DISTRESS OR SOB. ESTRADA CATHETER WAS LEFT IN PLACE. PATIENT STATED THAT ESTRADA CATHETER WAS PLACED IN [facility] 2 WEEKS AGO. PATIENT REFUSED TO HAVE IT REMOVED. ALL PRESCRIBED MEDICATIONS HAVE BEEN GIVEN ALL PATIENT NEEDS HAVE BEEN MET. MED RECONCILIATION WAS PROVIDED TO PATIENT ALONG WITH DISCHARGE SUMMARY AND PAPERWORK. VITAL SIGNS WERE STABLE. MD AWARE OF ALL ABNORMAL LABS.
== END 2016-09-02 17:10 | DRG 314 ==
LOC: ER 18:11 → TELE 20:16 → MED 08-29 08:52
PROVIDERS: ADMIT Internal Medicine; ATTEND Internal Medicine Nephrology
DX: T82.41XA Breakdown (mechanical) of vascular dialysis catheter, initial encounter (principal); N18.6 End stage renal disease; I12.0 Hypertensive chronic kidney disease with stage 5 chronic kidney disease or end stage renal disease; Y71.2 Prosthetic and other implants, materials and accessory cardiovascular devices associated with adverse incidents; Z99.2 Dependence on renal dialysis; E10.22 Type 1 diabetes mellitus with diabetic chronic kidney disease; E87.5 Hyperkalemia; Y84.1 Kidney dialysis as the cause of abnormal reaction of the patient, or of later complication, without mention of misadventure at the time of the procedure; Y92.129 Unspecified place in nursing home as the place of occurrence of the external cause; Z90.49 Acquired absence of other specified parts of digestive tract; Z98.890 Other specified postprocedural states; Z88.5 Allergy status to narcotic agent; Z88.8 Allergy status to other drugs, medicaments and biological substances; L30.4 Erythema intertrigo; K21.9 Gastro-esophageal reflux disease without esophagitis; E10.42 Type 1 diabetes mellitus with diabetic polyneuropathy; D64.9 Anemia, unspecified; N31.9 Neuromuscular dysfunction of bladder, unspecified; E78.5 Hyperlipidemia, unspecified; Z79.4 Long term (current) use of insulin; S10.93XA Contusion of unspecified part of neck, initial encounter; X58.XXXA Exposure to other specified factors, initial encounter
CPT/HCPCS: 36415; 71010-TC; 80048-TC; 80053-TC; 82962-TC; 83735-TC; 84100-TC; 84134-TC; 85025-TC; 85730-TC; 87081-TC; 90935-TC; A4606; J0885; J1815; Z7610